=== PATIENT | female | born 2000 | race Caucasian/White ===

== ENCOUNTER 2024-03-21 21:22 | Emergency (ER) | payer OTHER, SELFPAY ==
--- NOTE | ~2024-03-21 | XR_ITS ---
CHEST RADIOGRAPH, PA AND LATERAL CLINICAL HISTORY: PALPITATIONS SOB DIZZY . COMPARISON: None available TECHNIQUE: PA and lateral views of the chest. FINDINGS The cardiomediastinal silhouette is unremarkable. The lungs are clear. Visualized osseous structures and soft tissues are unremarkable. IMPRESSION: No focal infiltrate or effusion. Reviewed, dictated and finalized at location A. LVERIZER
--- NOTE | 2024-03-21 21:24 | ECG_ITS ---
Test Date: 2024-03-21 21:31:39 Measurements Intervals [place] Rate: 121 P: 75 [place]: 122 QRS: 82 QRSD: 79 T: 29 QT: 338 QTc: 480 Interpretive Statements SINUS TACHYCARDIA POSSIBLE RIGHT VENTRICULAR CONDUCTION DELAY [RSR (QR) IN V1/V2] NONSPECIFIC ST & T-WAVE ABNORMALITY ABNORMAL RHYTHM ECG No previous ECG available for comparison Electronically Signed On 03-23-2024 08:51:38 MANAGER CHANGE by Mj Locke M.D.
[2024-03-21 21:25] VITALS: BP 130/79; PULSE 113; RESP 18; TEMP 36.4; O2SAT 100
[2024-03-21 21:44] LABS: Basophils Percent Auto 0.4 % (0.2-1.2); Eosinophils Percent Auto 0.4 % (0-4.4); Hematocrit 42.5 % (37.0-47.0); Hemoglobin 13.8 g/dL (12.0-15.0); Immature Granulocyte Absolute 0.02 K/mm3 (0.00-0.031); Immature Granulocyte Percent A 0.3 % (0-0.5); Lymphocytes Absolute Auto 1.35 K/mm3 (0.9-3.2); Lymphocytes Percent Auto 19.1 % (18.3-44.2); Mean Corpuscular HGB Conc 32.5 g/dl (32-36); Mean Corpuscular Hemoglobin 29.9 pg (26-34); Mean Corpuscular Volume 92.2 fl (80-100); Mean Platelet Volume 9.7 fl (7.4-10.4); Monocytes Absolute Auto 0.4 K/mm3 (0.1-0.6); Monocytes Percent Auto 5.9 % (2.6-8.5); Neutrophils Absolute Auto 5.2 K/mm3 (1.3-6.7); Neutrophils Percent Auto 73.9 % (45.5-73.1); Platelet Count Result 291 k/mm3 (150-375); Red Blood Count 4.61 M/mm3 (4.2-5.4); Red Cell Distribution Width 12.4 % (11.5-14.5); White Blood Count 7.1 K/mm3 (4.5-10.0)
[2024-03-21 21:54] LABS: Alanine Aminotransferase 22 U/L (6-35); Albumin Level 4.7 g/dL (3.5-5.1); Alkaline Phosphatase 57 U/L (38-126); Anion Gap 6 mmol/L (4-12); Aspartate Amino Transferase 32 U/L (14-36); Bilirubin,Total 0.6 mg/dL (0.2-1.3); Blood Urea Nitrogen 17 mg/dL (7-17); Calcium 9.6 mg/dL (8.4-10.2); Carbon Dioxide 29 mmol/L (22-30); Chloride 104 mmol/L (98-107); Estimated CRCL calculation 100 ml/min; Estimated Glomerular Filt Rate > 60; Glucose 116 mg/dL (65-110); Lipase 91 U/L (23-300); Potassium 3.7 mmol/L (3.4-5.0); Sodium 139 mmol/L (137-145)
[2024-03-21 21:55] LABS: Partial Thromboplastin Time 24.3 Seconds (22.3-36.8)
[2024-03-21 22:01] LABS: BEDSIDEPREGUCG Negative (Negative)
[2024-03-21 22:05] LABS: Troponin I < 0.012 ng/mL (0.000-0.034)
--- NOTE | 2024-03-22 00:05 | ECG_ITS ---
Test Date: 2024-03-22 00:15:04 Measurements Intervals [place] Rate: 103 P: 75 [place]: 116 QRS: 79 QRSD: 80 T: 1 QT: 309 QTc: 405 Interpretive Statements SINUS TACHYCARDIA WITH SHORT [place] INTERVAL LEFT ATRIAL ENLARGEMENT [-0.15mV P WAVE IN V1/V2] POSSIBLE RIGHT VENTRICULAR CONDUCTION DELAY [RSR (QR) IN V1/V2] NONSPECIFIC T-WAVE ABNORMALITY Compared to ECG 03/21/2024 21:31:39 Short [place] interval now present Atrial abnormality now present T-wave abnormality still present Electronically Signed On 03-23-2024 08:58:48 CONTRACTOR GENERAL BUILDING by Mj Locke M.D.
[2024-03-22 00:41] LABS: Troponin I < 0.012 ng/mL (0.000-0.034)
--- NOTE | 2024-03-22 00:41 | ED.ARRPALP ---
HPI - Arrhythmia/Palpitations General Chief Complaint: Arrhythmia/Palpitations Stated Complaint: palpitations, 118 hr, sob Time Seen by Provider: 03/22/24 00:24 Source: patient Mode of arrival: ambulatory Limitations: no limitations History of Present Illness HPI narrative: This is a 23-year-old female who presents to the ED for chief complaint of sudden-onset palpitations and shortness of breath just prior to arrival. States that she was in the car with her friend and they were eating fast food. Reports that she felt dizzy and had an episode of vomiting and sweating. Reports this episode lasted for about 30 minutes. States that she had not eaten anything all day until about 9:00 p.m.. She did also drink an energy drink today. She states that she just got back for school from home for Brayan break. Denies any increase in stress. Does state that she takes control. Denies any other medications. Denies leg swelling. Denies chest pain. Does state that she had recent viral symptoms a few weeks ago with a productive cough but that has since resolved. Denies fevers, chills, abdominal pain. States that she has been improving since arrival to the ED and waiting in the waiting room. Related Data Allergies Allergy/AdvReac Type Severity Reaction Status Date / Time No Known Allergies Allergy Verified 03/22/24 00:54 Review of Systems Review of Systems: All systems as dictated in HPI Exam Narrative: GENERAL: Well-appearing, well-nourished, and in no acute distress. HEAD: Normocephalic, atraumatic. EYES: PERRLA and EOMI. ENT: Nares clear, no rhinorrhea or epistaxis. Mucous membranes moist. Oropharynx without tonsillar hypertrophy exudate or other lesions. NECK: Supple. No adenopathy or masses. CHEST: No respiratory distress. Clear to auscultation. No wheezes rales or rhonchi HEART: Regular rate and rhythm. No murmur heard. Normal peripheral pulses. ABDOMEN: Soft, nontender, nondistended, normal active bowel sounds. MSK: Normal range of motion. No edema. SKIN: Warm, dry, no rash. NEURO: Alert and oriented x4. No focal deficits. PSYCH: Normal mood and affect. Course Vital Signs Vital signs: Vital Signs Temperature 97.6 F 03/21/24 21:25 Pulse Rate 113 H 03/21/24 21:25 Respiratory Rate 18 03/21/24 21:25 Blood Pressure 130/79 03/21/24 21:25 Pulse Oximetry 100 03/21/24 21:25 Oxygen Delivery Room Air 03/21/24 21:25 Temperature 97.6 F 03/21/24 21:25 Pulse Rate 100 03/22/24 00:50 Respiratory Rate 12 03/22/24 00:50 Blood Pressure 121/96 H 03/22/24 00:50 Pulse Oximetry 100 03/22/24 00:50 Oxygen Delivery Room Air 03/21/24 21:25 MDM - Arrhythmia/Palpitations MDM Narrative Medical decision making narrative: This is a 23-year-old female who presents to the ED for chief complaint of palpitations, shortness of breath and dizziness. Vitals on arrival show mild tachycardia but otherwise normal. Exam remarkable for the above. Nontoxic appearing, resting comfortably. EKG on arrival shows sinus tachycardia. Three are EKG shows resolving tachycardia and sinus rhythm. EKG was reaching out short AK, however does not appear to be any delta waves consistent with WPW. Lab work is grossly unremarkable. Serial troponins are negative. D-dimer is negative. Low suspicion for PE given presentation and negative D-dimer. Chest x-ray shows no acute findings. On multiple re-evaluations, patient is resting comfortably and feels much improved compared to earlier. Vitals have normalized. Heart rate is normal. She did not require any intervention here in the ER. She feels reassured by the workup. Encouraged patient to follow-up with PCP if she continues to have episodes of palpitations that she may need something like a Holter monitor. Patient will be discharged in stable condition. Supportive measures discussed and return precautions given. Patient is understanding and agreeable with plan for discharge with PCP follow-up. Lab Data 03/21/24 21:37 03/21/24 21:37 Labs: Lab Results 03/21/24 03/21/24 03/22/24 Range/Units 21:37 21:58 00:12 WBC 7.1 (4.5-10.0) K/mm3 RBC 4.61 (4.2-5.4) M/mm3 Hgb 13.8 (12.0-15.0) g/dL Hct 42.5 (37.0-47.0) % MCV 92.2 (80-100) fl MCH 29.9 (26-34) pg MCHC 32.5 (32-36) g/dl RDW 12.4 (11.5-14.5) % Plt Count 291 (150-375) k/mm3 MPV 9.7 (7.4-10.4) fl Immature Gran % (Auto) 0.3 (0-0.5) % Neut % (Auto) 73.9 H (45.5-73.1) % Lymph % (Auto) 19.1 (18.3-44.2) % Sharp % (Auto) 5.9 (2.6-8.5) % Eos % (Auto) 0.4 (0-4.4) % Baso % (Auto) 0.4 (0.2-1.2) % Lymph # (Auto) 1.35 (0.9-3.2) K/mm3 Sharp # (Auto) 0.4 (0.1-0.6) K/mm3 Eos # (Auto) 0.0 (0-0.3) K/mm3 Baso # (Auto) 0.0 (0.0-0.1) K/mm3 Abs Immat Gran (auto) 0.02 (0.00-0.031) K/mm3 Absolute Neuts (auto) 5.2 (1.3-6.7) K/mm3 Absolute Nucleated RBC 0.000 (0.0-0.012) K/mm3 Nucleated RBC % 0.0 (0.0-0.2) % PT 13.0 (11.1-14.7) Seconds INR 1.0 APTT 24.3 (22.3-36.8) Seconds D-Dimer < 0.27 (<0.48) ug/mL Sodium 139 (137-145) mmol/L Potassium 3.7 (3.4-5.0) mmol/L Chloride 104 (98-107) mmol/L Carbon Dioxide 29 (22-30) mmol/L Anion Gap 6 (4-12) mmol/L BUN 17 (7-17) mg/dL Creatinine 0.75 (0.7-1.0) mg/dL Estim Creat Clear Calc 100 ml/min Estimated GFR > 60 (59 - ) Glucose 116 H (65-110) mg/dL Calcium 9.6 (8.4-10.2) mg/dL Total Bilirubin 0.6 (0.2-1.3) mg/dL AST 32 (14-36) U/L ALT 22 (6-35) U/L Alkaline Phosphatase 57 (38-126) U/L Troponin I < 0.012 < 0.012 (0.000-0.034) ng/mL NT-Pro-B Natriuret Pep < 20 (19.9-100) pg/mL Total Protein 9.0 H (6.3-8.2) g/dL Albumin 4.7 (3.5-5.1) g/dL Lipase 91 (23-300) U/L TSH Pending POC Urine HCG, Qual Negative (Negative) ECG Data EKG #1: ECG completion date: 03/22/24 ECG completion time: 21:31 Prior ECG tracings: available for review Interpretation: Sinus tachycardia Rate 121 Slightly prolonged QTC Normal QRS No STEMI EKG #2: ECG completion date: 03/22/24 ECG completion time: 00:15 Prior ECG tracings: available for review Interpretation: Sinus tachycardia Rate 103 Normal QTC Normal QRS No acute ischemic findings Discharge Plan Discharge Clinical Impression: Palpitations, Sinus tachycardia Patient Disposition: Home, Self-Care Condition: Stable Instructions: Antibiotic Form, Heart Palpitations (ED) Additional Instructions: Your exam and workup today are reassuring. If you continue to have issues with palpitations, please contact your regular doctor. If you have any new or worsening symptoms please return to the ER for further evaluation. Patient Language: Solomon Islander Follow-up/Referrals: PHYSICIAN NOT ON STAFF,NONSTAFF [Primary Care Provider] - Time of Disposition: :28
[2024-03-22 00:50] VITALS: BP 121/96; PULSE 100; RESP 12; O2SAT 100
[2024-03-22] MEDS: Please add drug allergy info to patient profile. 1 EACH XX (00:58)
[2024-03-22 00:59] LABS: D Dimer < 0.27 ug/mL (<0.48)
[2024-03-22 01:01] LABS: NT Pro B Type Natriuretic Pept < 20 pg/mL (19.9-100)
[2024-03-22 01:32] VITALS: BP 122/86; PULSE 89; RESP 15; O2SAT 99
--- OUTSIDE RECORDS SUMMARY | 2024-03-29 00:47 | XMS_ITS | Encounter Summary ---
[facility] Organization [facility] Address [address] [place] [address] Phone Care Team Providers Care Endband Sizer Name Role Phone Chastity Soto MD Primary Care Provider [phone] Encounter Details Date Type Department Care Team (Late st Contact Info) Description 12/23/[address] [facility] [address] [place] [address] Chastity Soto MD [address] [place] [address] Social History Tobacco Use Types Packs/Day Years Used Date Smoking Tobacco: Never Smokeless Tobacco: Never Alcohol Use Standard Drinks/Week Comments No 0 (1 standard drink = 0.6 oz pur e alcohol) Comments No Sex and Gender Information Value Date Recorded Sex Assigned at Not on file Legal Sex Female 10:17 AM CDT Gender Identity Not on file Sexual Orientation Not on file documented as of this encounter Miscellaneous Notes * Telephone Encounter - Tabitha St LPN - 12/23/2023 2:26 PM CDT Signed Prescriptions: Disp Refills fluconazole (DIFLUCAN) 150 mg tablet 2 tabl*0 Sig: Repeat in 3 days prn Authorizing Provider: CHASTITY SOTO Ordering User: TABITHA ST LPN * Telephone Encounter - Tabitha St LPN - 12/23/2023 1:35 PM CDT LMTCB * Telephone Encounter - Chastity Soto MD - 12/23/2023 12:25 PM CDT Diflucan 150 mg po x 1 dose, repeat in 3 days if needed * Telephone Encounter - Angélica Lynn - 12/23/2023 9:30 AM CDT Pt Mom called and states Kajal has a yeast infection. She is away at [facility]. Wants to know if a script could be sent to [email or web address]. documented in this encounter Plan of Treatment Not on file documented as of this encounter Visit Diagnoses Diagnosis Yeast infection- Primary Other and unspecified mycoses documented in this encounter Care Teams Endband Sizer Relationship Specialty Start Date End Date Chastity Soto MD PCP - General 01/24/20 documented as of this encounter
--- OUTSIDE RECORDS SUMMARY | 2024-03-29 00:47 | XMS_ITS | Clinical Summary ---
Author Organization [facility] Address [address] [place] [address] Phone Care Team Providers Care Rock Cutter Name Role Phone Provider, Unknown Primary Care Provider Unavaila ble Allergies No known active allergies Medications No known medications Active Problems No known active problems Social History Tobacco Use Types Packs/Day Years Used Date Smoking Tobacco: Never Assessed Comments Unknown Sex and Gender Information Value Date Recorded Sex Assigned at Not on file Legal Sex Female 3:18 AM PET CAREGIVER Gender Identity Not on file Sexual Orientation Not on file Last Filed Vital Signs Vital Sign Reading Time Taken Comments Blood Pressure 99/66 10/03/2011 1:00 PM CDT Pulse 80 10/03/2011 1:00 PM CDT Temperature 36.8 ??C (98.3 ??F) 10/03/2011 1:00 PM CD T Respiratory Rate 20 10/03/2011 1:00 PM CDT Oxygen Saturation 100% 10/03/2011 1:00 PM CDT Inhaled Oxygen Concentration - - Weight 32.2 kg (71 lb) 10/03/2011 1:00 PM CDT Height - - Body Mass Index - - Plan of Treatment Health Maintenance Due Date Last Done Comments Hepatitis C Virus (HCV) Screening 2002 TdaP Immunization 2002 Human Papillomavirus (HPV) Immunization (1 - 3-dose series) 2017 Meningococcal B Immunization (1 of 2 - Standard) 2018 Hepatitis B Immunization (1 of 3 - 19+ 3-dose series) 2021 Influenza Immunization (#1) 2023 SARS-COV-2 Immunization ( - season) 2023 Respiratory Syncytial Virus (RSV) Immunization (Adult) (1 - 1-dose 75+ series) 2077 Meningococcal Immunization (ACWY) Aged Out No longer eligible based on patient's age to complete this topic Pneumococcal Immunization Combined Aged Out No longer eligible based on patient's age to complete this topic Rotavirus Immunization Aged Out No lo nger eligible based on patient's age to complete this topic Insurance [facility] Care Teams Rock Cutter Relationship Specialty Start Date End Date Provider, Unknown UNKNOWN PCP - General 10/03/11
--- OUTSIDE RECORDS SUMMARY | 2024-03-29 00:47 | XMS_ITS | Encounter Summary ---
Author Organization [facility] Address [address] [place] [address] Phone Care Team Providers Care Pinking Machine Operator Name Role Phone Chastity Soto MD Primary Care Provider [phone] Reason for Visit * Reason Comments Physical Nursing school Encounter Details Date Type Department Care Team ([facility] st Contact Info) Description 10/14/2023 1:30 PM CDT Physical [facility] [place] [address] [place] [id number] Chastity Soto MD [address], [place] [id number] Wellness examination (Primary Dx) Social History Tobacco Use Types Packs/Day Years [...] on file documented as of this encounter Last Filed Vital Signs Vital Sign Reading Time Taken Comments Blood Pressure 98/64 10/14/2023 1:33 PM CDT Pulse 89 10/14/2023 1:33 PM CDT Temperature 36.5 ??C (97.7 ??F) 10/14/2023 1:33 PM CD T Respiratory Rate - - Oxygen Saturation 99% 10/14/2023 1:33 PM CDT Inhaled Oxygen Concentration - - Weight 71 kg (156 lb 9.6 oz) 10/14/2023 1:33 PM CDT Height 170.2 cm (5' 7 ) 10/14/2023 1:33 PM CDT Body Mass Index 24.53 10/14/2023 1:33 PM CDT documented in this encounter Patient Instructions * Attachments The following attachments cannot be sent through Care Everywhere. * Preventive Care 21-39 Years Old Female (Turkmen) documented in this encounter Progress Notes * Chastity Soto MD - 10/14/2023 2:04 PM CDT Chief Complaint Patient presents with Physical Nursing school Subjective: Patient ID: Kajal Arvizu is a 22 years old female. HPI Patient's problem list, medications, allergies, past medical, surgical, social and family historieswere reviewed and updated as appropriate. Here for wellness visit. No acute concerns today. Needs form completed for nursing school. Review of Systems Constitutional: Negative for chills and fever. Objective: Visit Vitals BP 98/64 (BP Site: left upper arm, BP Position: sitting, BP Cuff: Adult) Pulse 89 Temp 36.5 ??C (97.7 ??F) (Temporal) Ht 1.702 m (5' 7 ) Wt 71 kg (156 lb 9.6 oz) SpO2 99% BMI 24.53 kg/m?? Body mass index is 24.53 kg/m??. Physical Exam Vitals and nursing note reviewed. Constitutional: General: She is not in acute distress. Cardiovascular: Rate and Rhythm: Normal rate and regular rhythm. Heart sounds: Normal heart sounds. Pulmonary: Effort: Pulmonary effort is normal. Breath sounds: Normal breath sounds. No wheezing. Musculoskeletal: Cervical back: Neck supple. Right lower leg: No edema. Left lower leg: No edema. Lymphadenopathy: Cervical: No cervical adenopathy. Neurological: General: No focal deficit present. Mental Status: She is alert. Psychiatric: Mood and Affect: Mood normal. Assessment/Orders: Kajal was seen today for physical. Diagnoses and all orders for this visit: Wellness examination Plan: Wellness visit - Vaccines - up to date Form completed for nursing school documented in this encounter Plan of Treatment Not on file documented as of this encounter Visit Diagnoses Diagnosis Wellness examination- Primary documented in this encounter Care Teams Pinking Machine Operator Relationship Specialty Start Date End Date Chastity Soto MD PCP - General 01/24/20 documented as of this encounter
--- OUTSIDE RECORDS SUMMARY | 2024-03-29 00:47 | XMS_ITS | Clinical Summary ---
Author Organization [facility] Address [address] [place] [address] Phone Care Team Providers Care Agronomy Supervisor Name Role Phone Chastity Soto MD Primary Care Provider [phone] Allergies No known active allergies Medications * This document contains information received from the source organization and may not represent a complete record from that organization. cetirizine-pseu doephedrine (ZYRTEC-D) 5-120 mg Tb12 Take 1 (one) tablet by mouth 2 (two) times daily as needed for Allergies or Rhinitis. 3 Active norgestimate-et hinyl estradioL (TRI-SPRINTEC 28) 0.18/0.215/0.25 mg-35 mcg (28) tablet Take 1 tablet by mouth every day Active fluconazole (DIFLUCAN) 150 mg tabletIndicatio ns:Yeast infection Repeat in 3 days prn 2 tablet 4 03/23/19 25 Discontinu ed(Therapy complete-A VS) Active Problems Problem Noted Date Diagnosed Date Anxiety 04/24/2014 Dysfunction of eustachian tube 04/28/2011 Overview (10/14/2023): Overview: VASU GUEVARA MD Encounters Date Type Department Care Team Description 03/27/2024 Scanned Document [facility] [address] [place] [phone] Identified, No Provider 03/23/2024 9:45 AM MACHINE TOOL REBUILDER Office Visit [facility] [address] [place] [phone] Chastity Soto MD Tachycardia (Primary Dx) 03/22/2024 Scanned Document Non [facility] Referring Docs Identified, No Provider 03/22/[address] [address] Chastity Soto MD 03/21/2024 Scanned Document Non [facility] Referring Docs Identified, No Provider from Last 3 Months Immunizations Name Administration Dates Next Due DTaP-Acellular (Infanrix) 08/29/2008,02/2005,06/12/2003,04/10,02/06/2003 HEP B/HIB (Comvax) 03/26/2004,04/10/2003, 003 Human Papillomavirus (Gardasil 9) 01/24/2020 Human Papillomavirus - Quadr ivalent (GARDASIL) 10/18/2014 Influenza (FLUARIX) vaccine 12/14/2023 Yacbzbq-Iidhb-Zsxvtrb - MMR (Priorix) 08/29/2008 ,12/26/2003 Meningococcal (MENACTRA) 10/18/2014 Meningococcal (MENVEO) 01/24/2020 Pneumococcal Polysaccharide (Pneumovax 23) 03/26/2004,12/26/2003,04/10/2003,02/06 Polio Virus (IPOL) 08/29/2008, 4,04/10/2003,02/06 T-dap (BOOSTRIX) 10/18/2014 Varicella (VARIVAX) 11/14/2014,11/05/2006 Family History Medical History Relation Name Comments No Pertinent Hx Father No Pertinent Hx Mother OTHER Other 1 Coronary artery disease - All Family: Noted on 2012-03-11 11:30:25 OTHER Other 2 Hypertension - All Family: Noted on 2012-03-11 11:30:25 Relation Name Status Comments Father Alive Mother Alive Other 1 Other 2 Social History Tobacco Use Types Packs/Day Years Used Date Smoking Tobacco: Never Smokeless Tobacco: Never Tobacco Cessation:Counseling Given: Not Answered Alcohol Use Standard Drinks/Week Comments No 0 (1 standard drink = 0.6 oz pur e alcohol) Comments No Sex and Gender Information Value Date Recorded Sex Assigned at Not on file Legal Sex Female 10:17 AM CDT Gender Identity Not on file Sexual Orientation Not on file Last Filed Vital Signs Vital Sign Reading Time Taken Comments Blood Pressure 94/70 03/23/2024 9:54 AM MACHINE TOOL REBUILDER Pulse 96 03/23/2024 9:54 AM MACHINE TOOL REBUILDER Temperature 36.5 ??C (97.7 ??F) 03/23/2024 9:54 AM CS T Respiratory Rate 18 09/08/2022 9:41 AM CDT Oxygen Saturation 99% 03/23/2024 9:54 AM MACHINE TOOL REBUILDER Inhaled Oxygen Concentration - - Weight 71.2 kg (157 lb) 03/23/2024 9:54 AM MACHINE TOOL REBUILDER Height 170.2 cm (5' 7 ) 03/23/2024 9:54 AM MACHINE TOOL REBUILDER Body Mass Index 24.59 03/23/2024 9:54 AM MACHINE TOOL REBUILDER Plan of Treatment Health Maintenance Due Date Last Done Comments Chlamydia Screening 2017 COVID-19 Vaccine ( season) 2023 12/12/2020, 11/16/2020 Pap Smear 12/06/2023 DTaP/Tdap/Td Vaccines (7 - Td or Tdap) 10/18/2024 10/18/2014, 08/29/2008, 03/26/2004, Additional history exists Depression Screening 03/23/2025 03/23/2024, 10/14/19 24 HIB Vaccines Completed 03/26/2004, 03/16, 02/06/2003 Hepatitis B Vaccines Completed 03/26/2004, 04/10/2003, 02/06/2003 Pneumococcal Vaccines (0-64 Years) Aged Out 03/26/2004, 12/26/2003, 04/10/2003, Additional history exists No longer eligible based on patient's age to complete this topic IPV Vaccines Completed 08/29/2008, 12/13, 04/10/2003, Additional history exists MMR Vaccines Completed 08/29/2008, 12/26/2003 Varicella Vaccines Completed 11/14/2014, 11/05/2006 HPV Vaccines Completed 01/24/2020, 10/18/2014 Meningococcal Vaccine (ACWY) Completed 01/24/2020, 10/18/2014 Influenza Vaccine Completed 12/14/2023 Hepatitis A Vaccines Aged Out No long er eligible based on patient's age to complete this topic Rotavirus Vaccines Aged Out No longer eligible based on patient's age to complete this topic Procedures Procedure Name Priority Date/Time Associated Diagnosis Comments ECG 12 LEAD Routine 03/23/2024 2:32 PM MACHINE TOOL REBUILDER Tachycardia ECG 12 LEAD Routine 03/22/2024 8:31 AM MACHINE TOOL REBUILDER MISCELLANEOUS - EXTERNAL Routine 03/21/2024 8:35 AM MACHINE TOOL REBUILDER GENERAL RADIOLOGY - EXTERNAL Routine 03/21/2024 8:27 AM MACHINE TOOL REBUILDER from Last 3 Months Results * ECG 12 LEAD (03/23/2024 2:32 PM MACHINE TOOL REBUILDER) Only the most recent of2 resultswithin the time period is included. REPORT COMPONENT Study Date: 03/23/2024 Confirmation Date: 03/25/2024 Test Reason : Tachycardia, unspecified Vent. Rate : ??78 BPM ? Atrial Rate : ??78 BPM ?? P-R Int : 116 ms ?QRS Dur : ??76 ms ?QT Int : 370 ms ? P-R-T Axes : ??57 ??67 ??41 degrees ?? QTc Int : 421 ms Normal sinus rhythm with sinus arrhythmia Normal ECG No previous ECGs available Referred By: CHASTITY SOTO ? Confirmed By: SUZY AMEZCUA MD [facility] 03/23/2024 2:32 PM MACHINE TOOL REBUILDER us Chastity Soto MD [facility] Final Result Performing Organization Address [facility]/State/[facility] Co de Phone Number [address] [address], * MISCELLANEOUS - EXTERNAL (03/21/2024 8:35 AM MACHINE TOOL REBUILDER) us No Provider Identified LABORATORY Edited Re sult - Final * GENERAL RADIOLOGY - EXTERNAL (03/21/2024 8:27 AM MACHINE TOOL REBUILDER) us No Provider Identified GENERAL IMAGING Final Res ult from Last 3 Months Insurance [facility] Care Teams Agronomy Supervisor Relationship Specialty Start Date End Date Chastity Soto MD PCP - General 01/24/20
== END 2024-03-22 01:33 | disposition home or self-care (01) ==
PROVIDERS: Emergency Medicine; Emergency Provider Physician Assistant
DX: R00.2 Palpitations (principal); R00.0 Tachycardia, unspecified
CPT/HCPCS: 36415; 71046; 80053; 81025; 83690; 83880; 84443; 84484; 85025; 85380; 85610; 85730; 93005; 99284